=== PATIENT | male | born 1975 | race Caucasian/White ===

== ENCOUNTER 2016-08-19 07:56 | Emergency (ER) | payer BC ==
[2016-08-19 08:06] VITALS: BP 129/89
--- NOTE | 2016-08-19 09:18 | UC ---
Lower Extremity/Ankle HPI - HPI Summary HPI Summary: While going upstairs 3 days ago accidentally kicked into the stair with R foot. Walked normally that day, but by that night started having pain and swelling over 1st MT. Now unable to put pressure on that part of foot. - History of Current Complaint Chief Complaint: UCLowerExtremity Stated Complaint: FOOT INJURY Time Seen by Provider: 08/19/16 09:03 Hx Obtained From: Patient Onset/Duration: Sudden Onset Severity Initially: Mild Severity Currently: Moderate Aggravating Factor(s): Standing, Ambulation Alleviating Factor(s): Rest Able to Bear Weight: Yes - Allergies/Home Medications Allergies/Adverse Reactions: Allergies Allergy/AdvReac Type Severity Reaction Status Date / Time No Known Allergies Allergy Verified 09/29/14 17:30 PMH/Surg Hx/FS Hx/Imm Hx Previously Healthy: Yes - Surgical History Surgical History: None - Family History Known Family History: Positive: Hypertension - Social History Occupation: Employed Full-time Alcohol Use: Rare Substance Use Type: None Smoking Status (MU): Light Every Day Tobacco Smoker Review of Systems Constitutional: Negative Skin: Bruising Eyes: Negative ENT: Negative Respiratory: Negative Cardiovascular: Negative Gastrointestinal: Negative Genitourinary: Negative Motor: Negative Neurovascular: Negative Musculoskeletal: Arthralgia - R foot pain Neurological: Negative Psychological: Negative All Other Systems Reviewed And Are Negative: Yes Physical Exam Triage Information Reviewed: Yes Appearance: Well-Appearing, Well-Nourished Vital Signs: Initial Vital Signs Temp 98.5 F 08/19/16 08:01 Pulse 72 08/19/16 08:01 Resp 16 08/19/16 08:01 BP 129/89 08/19/16 08:01 Pulse Ox 99 08/19/16 08:01 Vital Signs Reviewed: Yes Eye Exam: Normal Eyes: Positive: Conjunctiva Clear ENT Exam: Normal ENT: Positive: Normal ENT inspection, Hearing grossly normal, Pharynx normal, TMs normal Dental Exam: Normal Neck exam: Normal Neck: Positive: Supple, Nontender, No Lymphadenopathy Respiratory Exam: Normal Respiratory: Positive: Chest non-tender, Lungs clear, Normal breath sounds, No respiratory distress, No accessory muscle use Cardiovascular Exam: Normal Cardiovascular: Positive: RRR, No Murmur Musculoskeletal Exam: Other - swelling, tender, bruised over R 1st MT Neurological Exam: Normal Neurological: Positive: Alert Psychological Exam: Normal Skin Exam: Normal Lower Extremity Course/Dx - Differential Dx/Diagnosis Provider Diagnoses: R foot sprain. elevated blood pressure due to pain Discharge - Discharge Plan Condition: Stable Disposition: HOME Patient Education Materials: Foot Sprain (ED) Referrals: Tyree Tinajero MD [Medical Doctor] - 1 Week Additional Instructions: Most soft-tissue injuries will get better with time and protection. Please follow up with the orthopedist in a week or so.
--- NOTE | 2016-08-19 09:33 | RAD ---
HISTORY: Right foot injury COMPARISONS: None VIEWS: 3, Frontal, lateral, and oblique views of the right foot FINDINGS: BONE DENSITY: Normal. BONES: There is no displaced fracture. JOINTS: There is no arthropathy. ALIGNMENT: There is no dislocation. SOFT TISSUES: Unremarkable. OTHER FINDINGS: None. IMPRESSION: NO ACUTE OSSEOUS INJURY. IF SYMPTOMS PERSIST, RECOMMEND REPEAT IMAGING.
== END 2016-08-19 09:23 | disposition home or self-care (01) ==
LOC: UCEAST 07:56
DX: S93.601A Unspecified sprain of right foot, initial encounter (principal); W22.8XXA Striking against or struck by other objects, initial encounter; Y93.01 Activity, walking, marching and hiking; Y92.9 Unspecified place or not applicable; Y99.9 Unspecified external cause status; R03.0 Elevated blood-pressure reading, without diagnosis of hypertension; Z72.0 Tobacco use
CPT/HCPCS: 99212; G0463

== ENCOUNTER 2017-02-18 18:04 | Emergency (ER) | payer BC ==
[2017-02-18 18:09] VITALS: BP 150/82
[2017-02-18] MEDS ORDERED: HYDROcodone/ACETAMIN 5-325 MG* 1 TAB PO ONE ×2 (18:46→20:36)
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
--- NOTE | 2017-02-18 19:44 | RAD ---
INDICATION: Left knee injury. TECHNIQUE: 4 views of the left knee were obtained. FINDINGS: There is soft tissue swelling and a soft tissue defect anterior to the distal femur. The bones are normal alignment. There is a trace joint effusion. No fracture is seen. Joint spaces appear maintained. IMPRESSION: SOFT TISSUE INJURY, NO FRACTURE IS SEEN.
[2017-02-18] MEDS ORDERED: Lidocaine 2% EPI 1:200000 MPF* 20 ML VIAL INJ ONE (19:50)
[2017-02-18] MEDS ORDERED: Lidocaine 2% W/EPI 1:100,000* 20 ML MDV ONE (20:00)
[2017-02-18] MEDS ORDERED: Cephalexin CAP* 500 MG PO ONE (20:37)
== END 2017-02-18 20:58 | disposition home or self-care (01) ==
LOC: UCEAST 18:04
DX: S81.012A Laceration without foreign body, left knee, initial encounter (principal); V86.92XA Unspecified occupant of snowmobile injured in nontraffic accident, initial encounter; Y93.29 Activity, other involving ice and snow; Y92.9 Unspecified place or not applicable; Z72.0 Tobacco use
CPT/HCPCS: 12002; 99213; A9270-GY; G0463

== ENCOUNTER 2017-02-28 12:48 | Emergency (ER) | payer BC ==
[2017-02-28] MEDS ORDERED: Benzoin Compound STICK TOPICAL ONE (13:05)
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
== END 2017-02-28 13:47 | disposition home or self-care (01) ==
LOC: UCEAST 12:48
DX: S81.012D Laceration without foreign body, left knee, subsequent encounter (principal); V86.92XD Unspecified occupant of snowmobile injured in nontraffic accident, subsequent encounter; Z87.891 Personal history of nicotine dependence
CPT/HCPCS: 99211; G0463

== ENCOUNTER 2019-02-26 11:16 | Emergency (ER) | payer BC, MEDICAID ==
[2019-02-26 11:57] VITALS: BP 136/96
--- NOTE | 2019-02-26 12:27 | UC ---
Skin Complaint HPI - HPI Summary HPI Summary: The patient is a 43-year-old male with a 6 month history of a rapidly growing left posterior neck mass. When he first noticed it it was a small firm and mobile lump. It was painless. Since then it has grown. Size has dramatically increased the past 2 weeks. During this time of rapid growth he has had progressively worsening pain. Last night his pain was severe and was associated with left arm numbness and weakness. He denies any fever. He denies any night sweats. Now he cannot raise his arm without having severe pain. - History of Current Complaint Chief Complaint: UCUpperExtremity Time Seen by Provider: 02/26/19 12:05 Stated Complaint: MASS ON BACK PAIN DOWN ARM Hx Obtained From: Patient Onset/Duration: Gradual Onset, Other - ^m Timing: Constant Onset Severity: Mild Current Severity: Severe Pain Intensity: 7 Pain Scale Used: 0-10 Numeric Location: Discrete Character: Swelling, Pain Aggravating Factor(s): Other - MOVEMENT left arm/neck Alleviating Factor(s): Nothing Associated Signs & Symptoms: Positive: Numbness - Left arm, Weakness - left arm , Tenderness. Negative: Nausea, Vomiting, Thirst, Diaphoresis, Pallor, Shivering, Difficulty Breathing, Fever, Chills, Cough, Wheezing, Chest Pain, Hoarseness, Throat Tightening, Rash, Abdominal Pain, Lightheadedness, Syncope, Drainage, Bruising, Red Streaks, Joint Swelling - Allergy/Home Medications Allergies/Adverse Reactions: Allergies Allergy/AdvReac Type Severity Reaction Status Date / Time No Known Allergies Allergy Verified 02/26/19 11:57 PMH/Surg Hx/FS Hx/Imm Hx Previously Healthy: Yes - Surgical History Surgical History: Yes Surgery Procedure, Year, and Place: VASECTOMY. EARS - TUBES A CHILD - Family History Known Family History: Positive: Hypertension, Other - Strong FHx Ca (pancreatic/ metastatic melanoma/bladder - Social History Alcohol Use: Occasionally Substance Use Type: None Smoking Status (MU): Light Every Day Tobacco Smoker Type: Cigarettes Amount Used/How Often: 5 cig/day Household Exposure Type: Cigarettes Review of Systems All Other Systems Reviewed And Are Negative: Yes Constitutional: Positive: Negative Skin: Positive: Negative Eyes: Positive: Negative ENT: Positive: Negative Respiratory: Positive: Negative Cardiovascular: Positive: Negative Gastrointestinal: Positive: Negative Genitourinary: Positive: Negative Neurovascular: Positive: Negative Musculoskeletal: Positive: Negative, Decreased ROM Neurological: Positive: Headache - mild, Paresthesia Psychological: Positive: Negative Physical Exam Triage Information Reviewed: Yes Appearance: Well-Appearing, No Pain Distress, Well-Nourished Vital Signs: Initial Vital Signs Temp 98.3 F 02/26/19 11:52 Pulse 85 02/26/19 11:52 Resp 18 02/26/19 11:52 BP 136/96 02/26/19 11:52 Pulse Ox 97 02/26/19 11:52 Vital Signs Reviewed: Yes Eyes: Positive: Conjunctiva Clear ENT: Positive: Normal ENT inspection, Hearing grossly normal Dental Exam: Normal Neck: Positive: Tenderness @ - see image, Other: - painful turn head to left- makes his left arm hurt and become more numb, see image Respiratory: Positive: No respiratory distress, No accessory muscle use, Other: - see image Cardiovascular: Positive: RRR, No Murmur Musculoskeletal: Positive: Other: - Severe pain abducting left arm Neurological: Positive: Alert, Other: - HORNERS SYNDROME Psychological Exam: Normal Skin Exam: Other - see image Images Head: 1 - Large mass/soft and feels cystic and is mobile 2 - fullness left supraclavicular fossa Front/Back of Body, Lg ([place]): 1 - bronchovesicular BS left apex ant and post Course/Dx - Course Course Of Treatment: I explained to patient he needed to go to the ER for evaluation of his mass 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
== END 2019-02-26 12:28 | disposition home health service (06) ==
LOC: UCEAST 11:16
DX: G90.2 Horner's syndrome (principal); R22.1 Localized swelling, mass and lump, neck; R51 Headache; F17.210 Nicotine dependence, cigarettes, uncomplicated
CPT/HCPCS: 99212; G0463

== ENCOUNTER 2019-02-26 12:48 | Emergency (ER) | payer MEDICAID ==
[2019-02-26 14:10] LABS: ABS Basophils 0.1 10^3/ul (0-0.2); ABS Eosinophils 0.1 10^3/ul (0-0.6); ABS Lymphocytes 1.5 10^3/ul (1.0-4.8); ABS Monocytes 0.8 10^3/ul (0-0.8); Eosinophil % 1.5 %; Hematocrit 57 % (42-52); Hemoglobin 19.3 g/dL (14.0-18.0); Lymphocyte % 17.8 %; Mean Corpuscular HGB Conc 34 g/dL (31-36); Mean Corpuscular Hemoglobin 29 pg (27-31); Mean Corpuscular Volume 86 fL (80-94); Mean Platelet Volume 7.5 fL (7.4-10.4); Nucleated Red Blood Cells % 0.1; Platelet Count 270 10^3/uL (150-450); Red Blood Count 6.59 10^6 /uL (4.18-5.48); Red Cell Distribution Width 15 % (10-15); White Blood Count 8.6 10^3/uL (3.5-10.8)
[2019-02-26 14:34] LABS: Albumin 4.9 g/dL (3.2-5.2); Albumin/Globulin Ratio 1.7 (1-3); BUN/Creatinine Ratio 13.9 (8-20); Calcium 9.9 mg/dL (8.6-10.3); EGFR African American 91.2 (>60); EGFR Non-African American 75.3 (>60); Globulin 2.9 g/dL (2-4); Potassium 4.4 mmol/L (3.5-5.0); Total Protein 7.8 g/dL (6.4-8.9)
[2019-02-26] MEDS ORDERED: Iohexol 300* (CONTRAST) 10 ML SDV IV ONE (15:16)
[2019-02-26 17:28] VITALS: BP 138/101
--- NOTE | 2019-02-27 10:13 | ED ---
Upper Extremity Pain - HPI Summary HPI Summary: This patient is a 43-year-old male smoker who presents to the ED with a growing mass to the left upper posterior shoulder which has been growing over the past 6 months. He states this is fairly nonfluctuant, and has not caused him discomfort until last evening. He states last evening, he feels that area pinching on a nerve which is now radiating down into the ipsilateral arm. He also has associated temperature changes to the hand. Denies any color changes. Intermittent tingling to the fingertips. No history of malignancy. He has never had lipoma, sebaceous cysts or abscesses in the past. Significant family history of cancer. Patient denies any shortness of breath or chest pain. Denies any abdominal pain, nausea, vomiting. Denies any weakness to the upper extremities continues to have full range of motion. He does have 10/10 pain with abduction. - History of Current Complaint Chief Complaint: EDRashSkinAbscess Stated Complaint: MASS ON NECK, ARM NUMBNESS/WEAKNESS PER PT Time Seen by Provider: 02/26/19 13:02 - Allergies/Home Medications Allergies/Adverse Reactions: Allergies Allergy/AdvReac Type Severity Reaction Status Date / Time No Known Allergies Allergy Verified 02/26/19 11:57 PMH/Surg Hx/FS Hx/Imm Hx Endocrine/Hematology History: Denies: Hx Diabetes, Hx Thyroid Disease Cardiovascular History: Denies: Hx Hypertension, Hx Pacemaker/ICD Respiratory History: Denies: Hx Asthma, Hx Chronic Obstructive Pulmonary Disease (COPD) GI History: Denies: Hx Ulcer History: Denies: Hx Renal Disease Sensory History: Denies: Hx Hearing Aid Psychiatric History: Denies: Hx Panic Disorder - Surgical History Surgery Procedure, Year, and Place: VASECTOMY. EARS - TUBES A CHILD - Immunization History Date of Tetanus Vaccine: n Date of Influenza Vaccine: ukn Infectious Disease History: No Infectious Disease History: Denies: Hx Clostridium Difficile, Hx Hepatitis, Hx Human Immunodeficiency Virus (HIV), Hx of Known/Suspected MRSA, Hx Shingles, Hx Tuberculosis, Hx Known/ Suspected VRE, Hx Known/Suspected VRSA, History Other Infectious Disease, Traveled Outside the [place] in Last 30 Days - Family History Known Family History: Positive: Hypertension, Other - Strong FHx Ca (pancreatic/ metastatic melanoma/bladder - Social History Alcohol Use: Occasionally Substance Use Type: Reports: None Smoking Status (MU): Light Every Day Tobacco Smoker Type: Cigarettes Amount Used/How Often: 5 cig/day Physical Exam Vital Signs On Initial Exam: Initial Vitals Temp Pulse Resp BP Pulse Ox 97.5 F 94 16 147/100 98 02/26/19 12:49 02/26/19 12:49 02/26/19 12:49 02/26/19 12:49 02/26/19 12:49 Diagnostics - Vital Signs Vital Signs Temp Pulse Resp BP Pulse Ox 02/26/19 17:27 98.5 F 79 16 138/101 92 02/26/19 17:25 138/101 02/26/19 17:00 86 96 02/26/19 16:39 81 97 02/26/19 15:18 80 98 02/26/19 14:02 83 98 02/26/19 13:29 79 165/114 97 02/26/19 12:49 97.5 F 94 16 147/100 98 - Laboratory Lab Results: Lab Results 02/26/19 02/26/19 Range/Units 14:02 14:02 WBC 8.6 (3.5-10.8) 10^3/uL RBC 6.59 H (4.18-5.48) 10^6 /uL Hgb 19.3 H (14.0-18.0) g/dL Hct 57 H (42-52) % MCV 86 (80-94) fL MCH 29 (27-31) pg MCHC 34 (31-36) g/dL RDW 15 (10-15) % Plt Count 270 (150-450) 10^3/uL MPV 7.5 (7.4-10.4) fL Neut % (Auto) 70.6 % Lymph % (Auto) 17.8 % [place] % (Auto) 9.3 % Eos % (Auto) 1.5 % Baso % (Auto) 0.8 % Absolute Neuts (auto) 6.0 (1.5-7.7) 10^3/ul Absolute Lymphs (auto) 1.5 (1.0-4.8) 10^3/ul Absolute Monos (auto) 0.8 (0-0.8) 10^3/ul Absolute Eos (auto) 0.1 (0-0.6) 10^3/ul Absolute Basos (auto) 0.1 (0-0.2) 10^3/ul Absolute Nucleated RBC 0.0 10^3/ul Nucleated RBC % 0.1 Sodium 137 (135-145) mmol/L Potassium 4.4 (3.5-5.0) mmol/L Chloride 104 (101-111) mmol/L Carbon Dioxide 24 (22-32) mmol/L Anion Gap 9 (2-11) mmol/L BUN 15 (6-24) mg/dL Creatinine 1.08 (0.67-1.17) mg/dL Est GFR ( Amer) 91.2 (>60) Est GFR (Non-Af Amer) 75.3 (>60) BUN/Creatinine Ratio 13.9 (8-20) Glucose 91 (70-100) mg/dL Calcium 9.9 (8.6-10.3) mg/dL Total Bilirubin 1.00 (0.2-1.0) mg/dL AST 21 (13-39) U/L ALT 33 (7-52) U/L Alkaline Phosphatase 72 (34-104) U/L Total Protein 7.8 (6.4-8.9) g/dL Albumin 4.9 (3.2-5.2) g/dL Globulin 2.9 (2-4) g/dL Albumin/Globulin Ratio 1.7 (1-3) Result Diagrams: 02/26/19 14:02 02/26/19 14:02 Lab Statement: Any lab studies that have been ordered have been reviewed, and results considered in the medical decision making process. Course/Dx - Course Course Of Treatment: Patient is evaluated for left posterior shoulder/neck mass. On arrival into the ED, the patient appears well, nondiaphoretic and nontoxic appearing. There appears to be a very large mass measuring approximately 7 cm to the left upper posterior shoulder/neck without tenderness on palpation. He does have tenderness with abduction of the arm and is now having pain that is radiating down into the ipsilateral arm and into the fingertips. He associates temperature changes to the fingertips as well. On physical examination, radial pulse intact. There is some fullness to the L supraclavicular area - as noted on UC note, and again noted by this provider on exam. NO crepitus. No swelling to the arm. Good strength Discharge ED - Discharge Plan Condition: Stable Disposition: HOME Patient Education Materials: Soft Tissue Mass (ED) Referrals: Louis Colvin PA [Physician [employer] Math Teacher] - Dionna German MD [Primary Care Provider] - Josiah Limon MD [Medical Doctor] - Additional Instructions: Patient coordinator will schedule you an appt and most likely call tomorrow If they do not call you tomorrow, call Sunday- I have given you the phone number - Billing Disposition and Condition Condition: STABLE Disposition: Home
== END 2019-02-26 17:21 | disposition home or self-care (01) ==
LOC: ED 12:48
DX: M79.89 Other specified soft tissue disorders (principal); M79.602 Pain in left arm; R91.1 Solitary pulmonary nodule; R20.2 Paresthesia of skin; F17.210 Nicotine dependence, cigarettes, uncomplicated
CPT/HCPCS: 36415; 70491; 71046; 71250; 80053; 85025; 99282; Q9967